=== PATIENT | male | born 1950 | race Caucasian/White ===

== ENCOUNTER 2021-08-29 12:43 | Day surgery (SDC) | payer MEDICARE ==
--- NOTE | 2021-08-29 10:09 | HP ---
DATE OF SURGERY: 08/29/2021 HISTORY OF PRESENT ILLNESS: The patient is a 70-year-old has a bulge in the mid abdomen, seems to have a couple different areas of epigastric as well as small umbilical component. I feel he would benefit from repair as he is having increased symptoms worse with lifting. PAST MEDICAL HISTORY: Heart disease, hyperlipidemia. PAST SURGICAL HISTORY: He had coronary artery bypass graft, prior stents placed in the past. Skin cancer removed. Sinus surgery in the past. MEDICATIONS: Baby aspirin, fish oil, CoQ-10, rosuvastatin, clopidogrel. ALLERGIES: NKDA. FAMILY HISTORY: Heart disease, diabetes. Mother with lung cancer. SOCIAL HISTORY: History of smoking in the past. Denies alcohol abuse. REVIEW OF SYSTEMS: Fourteen systems reviewed. No chest pain or palpitations. Other systems negative or noncontributory as above and per preadmission questionnaire. PHYSICAL EXAMINATION: GENERAL: No acute distress. HEENT: Sclerae nonicteric. Mucous membranes moist. NECK: No JVD. CHEST: Equal excursion, nonlabored breathing. CVS: Regular rate and rhythm. ABDOMEN: Soft. Ventral hernia likely with some incarcerated fat or omentum. No peritoneal signs. EXTREMITIES: No significant edema. NEURO: Alert, moving extremities symmetrically. PSYCH: Appropriate mood and affect. SKIN: Dry. IMPRESSION: Incarcerated ventral hernia. I feel the patient would benefit from repair. We discussed options laparoscopic repair of incarcerated ventral hernia with mesh, possible open. General risk of anesthesia, deep vein thrombosis, pulmonary embolism, pneumonia, risk of aches, pains, burning or numbness possible filler leaf cutter long, risk of recurrent hernia, risk of mesh infection possibly requiring removal, risk of hematoma or seroma formation, risk of adhesion, scar formation or bowel obstruction. Perioperative risk of ileus, risk of recurrent hernia, risk of anesthesia, deep vein thrombosis, pulmonary embolism, pneumonia, risk of cardiopulmonary event given his comorbidities, remote risk of mesh fracture or failure possibly creating issues with the bowel, viscera or structures possibly requiring other procedures. He understands all of the above but not limited to, will proceed with laparoscopic assisted repair of incarcerated ventral hernia with mesh possible open as an outpatient.
[~2021-08-29 12:43] MED LIST: Lactated Ringers 0 ML IV ONE; Lactated Ringers 1,000 ML IV ONE; Sensorcaine 0.25% 10 ML ONE
[2021-08-29] MEDS ORDERED: Lactated Ringers 1,000 ML IV ONE (13:18)
[2021-08-29] MEDS ORDERED: Lactated Ringers 1,000 ML IV SCH (13:30)
[2021-08-29] MEDS ORDERED: CEFAZOLIN 2 GM-D5W BAG** 2 GM/50 ML ML IV ONE (13:37)
[2021-08-29 13:41] LABS: Hemoglobin 13.1 g/dL (12.5-18.0); Mean Cell Volume 96.1 fL (78-100); Mean Corpuscular Hemoglobin 32.3 pg (26-32); Mean Corpuscular Hgb Concent. 33.6 g/dL (32-36); Mean Platelet Volume 9.4 fL (7.5-11.0); Platelet Count 205 x10^3/uL (150-450); Red Blood Count 4.06 x10^6/uL (4.1-5.6); Red Cell Distribution Width 13.1 % (11.5-14.0)
[2021-08-29 13:57] LABS: ALBUMIN 3.8 g/dL (3.5-5.0); ALKALINE PHOSPHATASE 49 U/L (38-126); ANION GAP 10.9 MEQ/L (5-15); BLOOD UREA NITROGEN 14 mg/dL (9-20); CHLORIDE 107 mmol/L (98-107); Calcium 9.3 mg/dL (8.4-10.2); Carbon Dioxide 26 mmol/L (22-30); Creatinine 1 0.78 mg/dL (0.66-1.25); EST GLOMERULAR FILTRATION RATE > 60.0 ML/MIN; Glucose 114 mg/dL (74-106); SGOT/AST 26 U/L (17-59); SGPT/ALT 15 U/L (0-50); SODIUM 140 mmol/L (137-145); Total Protein 6.5 g/dL (6.3-8.2)
[2021-08-29] MEDS ORDERED: BRIDION 200MG/2ML IV ONE (14:00)
[2021-08-29] MEDS ORDERED: Decadron 4 MG INJ ONE ×2 (14:00→15:35)
[2021-08-29] MEDS ORDERED: CEFAZOLIN 2 GM-D5W BAG** 2 GM/50 ML ML IV SCH (14:00)
[2021-08-29] MEDS ORDERED: Xylocaine-Mpf 2% 5 Ml Vial ONE (14:00)
[2021-08-29] MEDS ORDERED: TORAdol 30 mg Injection ONE (14:00)
[2021-08-29] MEDS ORDERED: SUBLIMAZE 100 MCG/2 ML ONE (14:00)
[2021-08-29] MEDS ORDERED: Zemuron 100 MG/10 ML ONE ×2 (14:00→15:39)
[2021-08-29] MEDS ORDERED: DIPRIVAN 200 MG/20 ML IV ONE (14:00)
[2021-08-29] MEDS ORDERED: Zofran 4 MG/2 ML VIAL ONE (14:00)
[2021-08-29] MEDS ORDERED: Ephedrine Sulfate 50 MG/ML ONE (14:50)
[2021-08-29] MEDS ORDERED: Marcaine 0.5%/Epinephrine 10 ML ONE (15:39)
[2021-08-29 16:30] LABS: Hyaline Casts 0-2 /LPF (0-2); Mucus SLIGHT /HPF (NEGATIVE); WBC 0-2 /HPF (0-5)
[2021-08-29] MEDS ORDERED: MORPHINE SULFATE 2 MG INJ ONE (16:33)
[2021-08-29 16:36] LABS: Appearance CLEAR (CLEAR); Bilirubin NEGATIVE (NEGATIVE); Glucose NEGATIVE (NEGATIVE); Ketones NEGATIVE (NEGATIVE); RBC SMALL Ery/ul (0-5); Specific Gravity 1.025 (1.005-1.025)
[2021-08-29 16:37] LABS: Dipstick done @ ? MAIN LAB; Nitrite NEGATIVE (NEGATIVE); Ph 6.5 (5-6); Protein,Urine Dip NEGATIVE (Negative); Urobilinogen 0.2 mg/dL (0-1)
[2021-08-29] MEDS ORDERED: MORPHINE SULFATE 4 MG INJ IV ONE (17:31)
[2021-08-29] MEDS ORDERED: NORCO 5/325 MG PO PRN (17:32)
[2021-08-29] MEDS ORDERED: NORCO 5/325 MG ONE (17:34)
[2021-08-29 18:17] VITALS: O2SAT 95
[2021-08-29 18:19] VITALS: BP 133/61; PULSE 63
--- NOTE | 2021-08-30 08:50 | OP ---
SURGERY DATE/TIME: 08/29/2021 1435 PREOPERATIVE DIAGNOSIS: Incarcerated ventral hernia. POSTOPERATIVE DIAGNOSIS: Incarcerated ventral hernia x2 (repaired en bloc with single piece of mesh). PROCEDURE: Laparoscopic repair of incarcerated ventral hernia (x2 en bloc with single piece of mesh). SURGEON: Dr. Ady Fine. ANESTHESIA: General. ESTIMATED BLOOD LOSS: Minimal. INDICATIONS: As noted above. Risks and benefits explained in detail and not limited to and consent obtained. DESCRIPTION OF PROCEDURE AND FINDINGS: The patient is taken to the operating room. General anesthesia induced. Abdomen prepped and draped in usual sterile fashion. After official time out and no disagreement with planned procedure, a transverse incision made in the left upper quadrant. The fascia grasped and pulled upwards. Veress needle inserted and tested with saline. Pneumoperitoneum accomplished opening pressure 0 to 15. A 5 mm bladeless port and camera inserted without difficulty followed by 5 mm right mid abdomen, 5 mm left mid abdomen and 5 mm left lower quadrant under direct vision of the camera. There was no evidence of any intra-abdominal injury secondary to trocar or Veress needle placement. The patient had developed incarcerated omentum as well as incarcerated preperitoneal fat up in the ventral hernia area. The preperitoneal space is entered and carefully taken down dissecting circumferentially around the fascia. It was evident that he had two separate ventral hernias. The larger one had the omentum and preperitoneal fat as well as a smaller one adjacent to it that had preperitoneal fat incarcerated and these are both reduced carefully. Slowly and carefully with aid of LigaSure device freeing the attachments. Once this was done the site was measured. Overlapping both of these hernias, it was felt that size [address] mesh was the most appropriate size available. Therefore it was carefully marked on the skin on possible locations to pull up Ethibond and it was carefully four quadrant 0 Ethibond were placed as well as the straps cut off the mesh and centering 0 Vicryl placed this was done and in the meantime it was felt the true fascial defects it would be beneficial from closing in the meantime. The fact that he had such a moderate sized hernia sac, to reduce seroma formation it was felt to place a small counter incision above the hernia site through which dissection carried down to a pseudosac and using #1 Vicryl was carefully used in interrupted fashion to bring the two fascial edges back to the midline. These sutures were temporarily tacked with a port placed through this defect and the mesh carefully wet and rolled in place in the abdomen. The port removed having the pressure turned down to 8. Transfascial Vicryl sutures were then brought together bringing the fascia back to the midline in the usual fashion. Once this is accomplished, centering the mesh over the defect area with good overlap in all directions. The 0 and #1 Vicryl was pulled up centering the mesh through four separate stab wounds in four quadrants. 0 Ethibond is carefully brought up and tied transfascially to avoid migration of the mesh in the short term. The mesh is nice and flat. The Capture Tacker was then passed about 1 cm around the periphery with a couple additional tacks to reduce the risk of seromal formation in the center portion of the mesh. The mesh had good overlap in all directions and tension free with the pressure had been turned down to 8. At this point good hemostasis noted. The port is removed. Pneumoperitoneum decompressed. The mesh was lying nice and flat in tension free fashion. The port is removed. Pneumoperitoneum decompressed. The part where the hernia sac had been was packed down along with fascia to reduce the space to reduce the risk of seroma formation. The skin incision is closed with 4-0 Vicryl. Steri-Strips and sterile dressing applied. Anesthesia planning tap blocks. The patient tolerated the procedure well. There were no immediate complications. I will see if he has family to discuss the findings with.
== END 2021-08-29 18:15 | disposition home or self-care (01) ==
LOC: SDC 12:43
PROVIDERS: ATTEND Surgery
DX: K43.6 Other and unspecified ventral hernia with obstruction, without gangrene (principal); Z80.1 Family history of malignant neoplasm of trachea, bronchus and lung; I51.9 Heart disease, unspecified; E78.5 Hyperlipidemia, unspecified; Z79.899 Other long term (current) drug therapy
CPT/HCPCS: 36415; 49653; 76942; 80053; 81001; 85027; 87086; C1781; 64488; J0690; J1100; J1885; J2270; J2405; J2704; J3010; A9270-GY